=== PATIENT | female | born 1965 | race Caucasian/White ===

== ENCOUNTER → 2018-07-30 12:05 | Outpatient (CLI) | payer OTHER, MEDICAID, SELFPAY ==
--- NOTE | 2018-07-30 | DI.MG.S_ITS ---
BILATERAL DIGITAL SCREENING MAMMOGRAM 3D/2D WITH CAD: 07/30/2018 CLINICAL: Routine screening. Family history of breast cancer. Comparison is made to exams dated: 07/01/2016 mammogram - [facility], 11/07/2013 mammogram - [facility], and 06/26/2011 mammogram - [facility]. The tissue of both breasts is heterogeneously dense. This may lower the sensitivity of mammography. Current study was also evaluated with a Computer Aided Detection (CAD) system. No significant masses, calcifications, or other findings are seen in either breast. There has been no significant interval change. IMPRESSION: NEGATIVE There is no mammographic evidence of malignancy. A 1 year screening mammogram is recommended. This exam was interpreted at Station ID: [id number]. NOTE: For mammograms, a report in lay terms will be sent to the patient. Approximately 15% of breast malignancies will not be visualized mammographically. In the management of a palpable breast mass, a negative mammogram must not discourage biopsy of a clinically suspicious lesion. Electronically Signed By: Ifeoma rosado/[email or web address]:07/30/2018 14:21:07 letter sent: Normal Exam ACR BI-RADS Category 1: Negative [id number]
== END ==
PROVIDERS: PCP Family Medicine; Visit Provider Family Medicine
DX: Z12.31 Encounter for screening mammogram for malignant neoplasm of breast (principal); Z80.3 Family history of malignant neoplasm of breast
CPT/HCPCS: 77063; 77067

== ENCOUNTER 2018-10-26 12:13 | Day surgery (SDC) | payer OTHER, MEDICAID, SELFPAY ==
[2018-10-26] MEDS: SODIUM CHLORIDE 0.9% 1,000 ML 200 ML IV (13:22)
[2018-10-26 13:25] VITALS: BP 164/86; PULSE 79; RESP 16; TEMP 36.4; O2SAT 100
[2018-10-26] MEDS: fentaNYL 250 MCG/5 ML INJ IV (14:53)
[2018-10-26] MEDS: MIDAZOLAM 5 MG/5 ML VIAL IV (14:54)
--- NOTE | 2018-10-26 15:02 | PM.HP.1 ---
History of Present Illness Date Patient Seen: 10/26/18 Time Patient Seen: 15:02 Chief complaint: [id number] Narrative: Anika is a pleasant 53-year-old lady who presents for screening colonoscopy. She had a colonoscopy in 2013 and had 3 tubular polyps removed at that time. She denies any new problems or symptoms related to the function of her GI tract. She reports she needs a colonoscopy as part of the Health maintenance program. Patient History Surgical History History of bladder suspension procedure History of carpal tunnel repair Status post delivery Status post delivery Status post delivery Social History household members: children Family & Social History Social History: household members children Meds Home Medications Medication Instructions Recorded Confirmed Type esomeprazole magnesium [Nexium] 40 mg PO PRN #0 12/06/10 History ibuprofen 600 mg PO PRN #0 12/06/10 10/26/18 History MULTIVITAMIN (#MULTIPLE VITAMINS) 1 cap PO #0 12/10/10 History cetirizine 10 mg PO PRN #0 04/20/12 10/26/18 History levothyroxine 112 mcg PO DAILY 10/26/18 10/26/18 History linaclotide [Linzess] 145 mcg PO DAILY 10/26/18 10/26/18 History Allergies Allergy/AdvReac Type Severity Reaction Status Date / Time cefaclor [CEFACLOR] Allergy Unknown Unverified 11/18/17 13:00 minocycline [MINOCYCLINE] Allergy Unknown Unverified 11/18/17 13:00 nitrofurantoin Allergy Unknown Unverified 11/18/17 13:00 [NITROFURANTOIN] Sulfa (Sulfonamide Allergy Unknown Unverified 11/18/17 13:00 Antibiotics) [SULFA (SULFONAMIDE ANTIBIOTICS)] Review of Systems Review of Systems All systems reviewed & are unremarkable except as noted in HPI and below Exam Vital Signs (past 8 hours): - 10/26/18 13:25 Temperature 97.5 F L Pulse Rate 79 Respiratory Rate 16 Blood Pressure 164/86 H Pulse Oximetry 100 Oxygen Delivery Method Room Air Narrative Exam Narrative: Very pleasant, well-nourished, and well-developed lady in no distress HEENT: Normocephalic and atraumatic, pupils equal round reactive to light accommodation with anicteric sclera lungs: Clear to auscultation bilaterally Heart: Regular rate and rhythm without murmur rub or gallop abdomen: Soft, nontender, active bowel sounds extremities: Warm and well perfused and without edema Assessment & Plan Assessment & Plan narrative: very pleasant 53-year-old lady who is generally healthy. She has a personal history of colon polyps with 3 removed in 2013. We discussed the risks and benefits of colonoscopy the patient expressed a desire to complete the procedure today.
[2018-10-26 15:03] VITALS: BP 129/83; PULSE 87; RESP 16; TEMP 36.7; O2SAT 99
--- NOTE | 2018-10-26 15:04 | PM.OP.1 ---
Operative Date/Time/Diagnoses Date of procedure: 10/26/18 Time of procedure: 15:04 Pre-op diagnosis: Personal history of colon polyps Post-op diagnosis: same Procedure & Clinicians Procedure: colonoscopy to the cecum Same procedure as scheduled: Yes Indications: last colonoscopy 2013 Surgeon: Hoa Mares Click Yes if Unassisted: Yes Anesthesia Type: Sedation ( Versed 5 mg; fentanyl 100 mcg) Operative Notes Findings: 1. Adequate prep 2. No polyps or mass lesions 3. No AV malformations 4. diverticulosis limited to very small pockets in the sigmoid region only 5. Grade 1-2 internal hemorrhoids Closure Type: not applicable Specimen(s): none sent Procedure in detail: After obtaining informed consent, the patient was brought to the GI suite and placed in the left lateral decubitus position on the examination table. After placement of appropriate monitors, the patient was given incremental doses of Versed and Fentanyl until an appropriate level of sedation was achieved. A time out was held per SCOAP protocol. A digital rectal examination was performed and did not reveal any masses or obstructing lesions. The colonoscope was gently passed into the patient's anus and the entire colon navigated to the level of the cecum with minimal difficulty. Once in the cecum, the scope was withdrawn being sure to go before and beyond all mucosal folds and prominences and get an excellent examination. The findings are noted above. At the level of the rectal vault, the scope was retroflexed and the internal anal canal was examined. The scope was straightened and air aspirated from the colon. The instrument was removed from the patient's body and the procedure was concluded. The patient was allowed to awaken from sedation without difficulty and taken to the post-anesthesia care unit in good condition. total sedation time was 21 min total withdrawal time was 10 min 20 sec Complications: none Condition: stable Disposition: PACU Plan for aftercare: 1. Discharge to home 2. Plan for next colonoscopy in 5 years or as clinically indicated.
[2018-10-26 15:08] VITALS: BP 133/85; PULSE 85; RESP 18; O2SAT 99
[2018-10-26 15:13] VITALS: BP 134/84; PULSE 98; RESP 15; O2SAT 99
[2018-10-26 15:16] VITALS: BP 147/86; PULSE 86; RESP 15; TEMP 36.6; O2SAT 100
[2018-10-26 15:25] VITALS: BP 138/86; PULSE 84; RESP 15; TEMP 36.8; O2SAT 100
== END 2018-10-26 15:40 | disposition home or self-care (01) ==
PROVIDERS: PCP Family Medicine; Visit Provider Surgery
PROC: 0DJD8ZZ Inspection of Lower Intestinal Tract, Via Natural or Artificial Opening Endoscopic (ICD-10-PCS; CPT 45378; principal; 2018-10-26 14:00)
DX: Z86.010 Personal history of colon polyps (principal); K57.30 Diverticulosis of large intestine without perforation or abscess without bleeding; K64.1 Second degree hemorrhoids
CPT/HCPCS: 45378; 99152; J2250; J3010

== ENCOUNTER → 2018-11-25 11:12 | Outpatient (CLI) | payer OTHER, MEDICAID, SELFPAY ==
--- NOTE | 2018-11-25 11:30 | DI.RAD.S_ITS ---
PROCEDURE: XR CERVICAL SPINE 4V OR 5V INDICATIONS: Eval TECHNIQUE: 5 views of the cervical spine acquired. COMPARISON: None. FINDINGS: Bones: No fractures or dislocations to the C7 level. Mild uncovertebral joint hypertrophy from C4-C7. Mild disc space narrowing C5-6 and C6-7. Oblique images demonstrate mild bony foraminal narrowing secondary to uncovertebral joint hypertrophy on the right at C5-6, and on the left at C4-5.. Soft tissues: No prevertebral soft tissue swelling. IMPRESSION: Mild degenerative changes as described. Dictated by: Rachel Villarreal M.D. on 11/25/2018 at 12:25 Approved by: Rachel Villarreal M.D. on 11/25/2018 at 12:28
[2018-11-25 12:15] LABS: Add Manual Diff / Slide Review NO; Basophils Absolute Auto 100 /uL (0-100); Basophils Percent Auto 1.1 % (0-2); Eosinophils Absolute Auto 300 /uL (0-450); Eosinophils Percent Auto 5.1 % (2-4); Hematocrit 41.4 % (36-46); Lymphocytes Absolute Auto 2100 /uL (1100-4500); Mean Corpuscular HGB Conc 33.8 % (30-36); Mean Corpuscular Hemoglobin 29.4 PG (26-34); Mean Corpuscular Volume 86.9 fL (80-100); Monocytes Absolute Auto 400 /uL (0-900); Monocytes Percent Auto 5.9 % (3-14); Neutrophils Absolute Auto 3500 /uL (1500-7000); Neutrophils Percent Auto 54.9 % (50-75); Platelet Count 297 X10^3/uL (150-400); Red Blood Cell Count 4.76 X10^6/uL (4.0-5.2); Red Cell Distribution Width 12.6 % (11.6-14.8); White Blood Cell Count 6.3 X10^3/uL (4.5-11.0)
[2018-11-25 12:35] LABS: Erythrocyte Sedimentation Rate 9 MM/HR (0-20)
[2018-11-25 12:36] LABS: Alanine Aminotransferase 37 IU/L (9-52); Albumin 4.9 g/dL (3.5-5.0); Albumin Globulin Ratio 1.7 (1.0-2.8); Alkaline Phosphatase 85 U/L (38-126); Aspartate Aminotransferase 26 IU/L (14-36); BUN Creatinine Ratio 22.9 (6-22); Bilirubin Total 0.4 mg/dL (0.2-1.3); Blood Urea Nitrogen 16 mg/dL (7-17); C-Reactive Protein Quant < 0.5 mg/dL (<1.0); Calcium 10.2 mg/dL (8.4-10.2); Carbon Dioxide 26 mmol/L (22-32); Chloride 102 mmol/L (98-107); Estimated Glomerular Filt Rate > 60.0 mL/min (>60); Globulin 2.9 g/dL (1.7-4.1); Glucose 106 mg/dL (70-100); HEMOLYSIS < 15 (0-50); Potassium 4.7 mmol/L (3.4-5.1); Sodium 139 mmol/L (137-145); Total Protein 7.8 g/dL (6.3-8.2)
[2018-11-25 12:37] LABS: Rheumatoid Factor 9.8 IU/mL (<12.0)
[2018-11-25 12:56] LABS: TSH w/ Reflex to FT4 1.35 uIU/mL (0.47-4.68)
[2018-11-27 16:37] LABS: ANA Screen, IFA Negative (Negative)
== END ==
PROVIDERS: PCP Family Medicine; Visit Provider Physical Medicine & Rehabilitation
DX: M47.22 Other spondylosis with radiculopathy, cervical region (principal); M54.9 Dorsalgia, unspecified; G89.29 Other chronic pain; M25.50 Pain in unspecified joint
CPT/HCPCS: 36415; 72050; 80053; 84443; 85025; 85651; 86038; 86140; 86430

== ENCOUNTER 2020-04-25 07:59 | Emergency (ER) | payer OTHER, SELFPAY ==
--- NOTE | 2020-04-25 08:12 | ED.URI ---
HPI - URI/Sore Throat General Chief Complaint: Environmental Exposure Stated Complaint: bloody nose and burning lungs/chemicals today Time Seen by Provider: 04/25/20 08:12 History of Present Illness HPI Narrative: 54-year-old woman with a history of hypothyroidism and reflux was at work today went to clean out some jelly like chemical debris under a counter and after pulling out all of the bottles tubes in beginning the initial cleaning began having significant burning in her eyes and her throat and coughing. Coughing enough that she developed of mild nose bleed. In looking at the bottles and possible composition of the mess that she was cleaning up there was 1 that was the lye/descaler that she thinks was probably the culprit. I suspect that it was a combination of multiple bottles that had leaked causing the toxic milieu On arrival she is able to speak in full sentences but is coughing and continually clearing her throat. She has used a significant amount of saline flush for her eyes prior to arrival and her eyes are minimally bothersome at the time Related Data Home Medications Medication Instructions Recorded Confirmed esomeprazole magnesium [Nexium] 40 mg PO PRN #0 12/06/10 12/06/18 ibuprofen 600 mg PO PRN #0 12/06/10 12/06/18 MULTIVITAMIN (#MULTIPLE VITAMINS) 1 cap PO #0 12/10/10 12/06/18 cetirizine 10 mg PO PRN #0 04/20/12 12/06/18 levothyroxine 112 mcg PO DAILY 10/26/18 12/06/18 linaclotide [Linzess] 145 mcg PO DAILY 10/26/18 12/06/18 Previous Rx's Medication Instructions Recorded meloxicam 15 mg tablet 15 mg PO DAILY #30 tab 03/07/19 Allergies Allergy/AdvReac Type Severity Reaction Status Date / Time cefaclor [CEFACLOR] Allergy Unknown Verified 12/06/18 14:02 minocycline [MINOCYCLINE] Allergy Unknown Verified 12/06/18 14:02 nitrofurantoin Allergy Unknown Verified 12/06/18 14:02 [NITROFURANTOIN] Sulfa (Sulfonamide Allergy Unknown Verified 12/06/18 14:02 Antibiotics) [SULFA (SULFONAMIDE ANTIBIOTICS)] Review of Systems Review of Systems Narrative: Pertinent positive and negative findings as per HPI Remainder of review of systems is otherwise unremarkable for Constitutional: Fevers, chills, weakness ENT: , neck pain, ear pain CV: Chest pain, palpitations, dyspnea on exertion GI: Nausea, vomiting, diarrhea, change in bowel habits, black or bloody stools : Dysuria, hematuria, flank pain MS: Muscle weakness, numbness, joint swelling or warmth Skin: Rashes, nonhealing lesions Neuro: Syncope, dizziness, tingling Patient History Medical History (Updated 04/25/20 @ 09:20 by Guadalupe Vela MD) Diffuse arthralgia (Chronic) Hypothyroidism (acquired) (Acute) Surgical History (Updated 11/25/18 @ 10:57 by Christiano Malhotra DO) History of bladder suspension procedure History of carpal tunnel repair Status post delivery Status post delivery Status post delivery Social History household members: children Smoking Status: Never smoker Exam Narrative Exam Narrative: General: Healthy appearing, in mild distress. Able to give a complete and coherent history. Well-nourished well-developed HEENT: Moist mucous membranes, mildly injected sclera with reactive pupils, no intraoral rashes and no facial rashes. Minor epistaxis with coughing Neck: No JVD, supple Respiratory: Lungs are clear to auscultation, no wheezing no rales no rhonchi. Full and symmetrical air movement with significant recurrent dry cough Cardiac: Regular rate and rhythm no murmurs no bruits Abdomen: Soft nontender good bowel tones, no flank pain Skin: Warm and dry, no rashes Neurologic: Grossly neurologically intact with no obvious asymmetries or abnormalities Extremities: No trauma, well perfused Psych: Cooperative, appropriate insight and affect Initial Vital Signs Initial Vital Signs: Vital Signs Temperature 97.6 F 04/25/20 08:15 Pulse Rate 100 H 04/25/20 08:15 Respiratory Rate 18 04/25/20 08:15 Blood Pressure 171/99 H 04/25/20 08:15 Pulse Oximetry 100 04/25/20 08:15 Course Orders Ordered: Discontinued Medications Sodium Chloride (Normal Saline 0.9% (Rt/Inh)) 3 ml INH NOW ONE Stop: 04/25/20 08:26 Last Admin: 04/25/20 08:26 Dose: 3 ml Documented by: FIGUEROA Vital Signs Vital signs: Vital Signs - 8 hr 04/25/20 08:15 04/25/20 08:26 Temperature 97.6 F Pulse Rate 100 H 99 H Respiratory Rate 18 20 Blood Pressure 171/99 H Pulse Oximetry 100 98 [facility] - URI/Sore Throat Medical Records Attestation: I reviewed the patient's medical records. [facility] Narrative Medical decision making narrative: 54-year-old woman with toxic exposure to cleaning solvents at work. Was exposed for a number of minutes and is having cough, dry throat eyes have been rinsed in her no longer burning. She is not complaining of significant dyspnea or other chest pain aside from that related to the severity of the cough. In the emergency room she was given some nebulized saline which helped slightly and observed with no worsening of symptoms. At this point she is safe for home discharge and can return to work tomorrow. Discharge Plan Departure Patient Disposition: Home Clinical Impression: Exposure to toxic chemical Instructions: DI for Inhalation Injury Activity Restrictions/Additional Instructions: Thank you for coming in today You did the right thing by rinsing out your eyes right away. The chemicals have certainly irritated your upper airway causing the cough and a scratchy throat. There is no wheezing and no obvious trauma to the inside of your mouth or throat It is safe to go home. Given all of the smoke particular it in the air right now I would recommend staying inside for the rest of the day and resting. You can return to work tomorrow. I hope you feel better Prescriptions: No Action esomeprazole magnesium [Nexium] 40 MG capsule,delayed release(DR/EC) 40 mg PO PRN Qty: 0 RF: 0 ibuprofen 600 MG tablet 600 mg PO PRN Qty: 0 RF: 0 MULTIVITAMIN (#MULTIPLE VITAMINS) 1 cap PO Qty: 0 RF: 0 cetirizine 10 MG tablet 10 mg PO PRN Qty: 0 RF: 0 meloxicam 15 mg tablet 15 mg PO DAILY Qty: 30 RF: 2 Linzess 145 mcg Capsule 145 mcg PO DAILY RF: 0 levothyroxine 112 mcg Capsule 112 mcg PO DAILY RF: 0 Referrals: Morro Chopra MD [Primary Care Provider] - Stand Alone Forms: Work Release Note
[2020-04-25 08:15] VITALS: BP 171/99; PULSE 100; RESP 18; TEMP 36.4; O2SAT 100
[2020-04-25 08:26] VITALS: PULSE 99; RESP 20; O2SAT 98
[2020-04-25] MEDS: SODIUM CHLORIDE 0.9% (RT/INH) 3 ML NEB INH (08:26)
--- NOTE | 2020-04-25 08:49 | PC.NURSE ---
pt clearing her throat frequently.
--- NOTE | 2020-04-25 09:12 | PC.NURSE ---
pt reports that saline hfn didn't work much.
[2020-04-25 09:36] VITALS: BP 155/86; PULSE 84; RESP 18; O2SAT 99
== END 2020-04-25 09:38 | disposition home or self-care (01) ==
PROVIDERS: Emergency Provider Emergency Medicine; PCP Family Medicine
DX: Z77.098 Contact with and (suspected) exposure to other hazardous, chiefly nonmedicinal, chemicals (principal); Y99.0 Civilian activity done for income or pay
CPT/HCPCS: 94640; 99283

== ENCOUNTER → 2021-07-25 13:19 | Outpatient (CLI) | payer OTHER, SELFPAY ==
--- NOTE | 2021-07-25 | DI.US.S_ITS ---
LIMITED ULTRASOUND OF RIGHT BREAST: 07/25/2021 CLINICAL: Palpable right breast lump. Comparison is made to exams dated: 07/25/2021 mammogram, 07/30/2018 mammogram, 07/01/2016 ultrasound, 07/01/2016 mammogram - [facility], 11/07/2013 mammogram - [facility], and 11/07/2013 [facility]. Color flow and real-time ultrasound of the right breast 10 o'clock region were performed. Torres scale images of the real-time examination were reviewed. No significant abnormalities were seen sonographically in the right breast. The lipoma seen on mammogram is not well defined by ultrasound. IMPRESSION: NEGATIVE The lipoma seen on mammography is not well seen by ultrasound. There is no sonographic evidence of malignancy. Return to annual mammogram screening schedule is recommended. If the lump remains symptomatic, surgical consult could be obtained for excision. Findings and recommendations were conveyed to the patient at time of exam. This exam was interpreted at Station ID: [id number]. Electronically Signed By: Rachel jacobs/:07/25/2021 15:33:10 letter sent: Normal Exam Ultrasound BI-RADS: 1 Negative
--- NOTE | 2021-07-25 | DI.MG.S_ITS ---
BILATERAL DIGITAL DIAGNOSTIC MAMMOGRAM 3D/2D: 07/25/2021 CLINICAL: Right breast lump. Comparison is made to exams dated: 07/30/2018 mammogram, 07/01/2016 mammogram - [facility], and 11/07/2013 mammogram - [facility]. The tissue of both breasts is heterogeneously dense. This may lower the sensitivity of mammography. There is a 2.9 cm oval fat containing lipoma with a circumscribed margin in the right breast at 10 o'clock middle depth. This is best seen on the lateral catie view and is not seen with spot compression. This has increased in size. No other significant masses, calcifications, or other findings are seen in either breast. No other new mammographic findings in the area of palpable abnormality. Mammograms are otherwise stable. IMPRESSION: INCOMPLETE: NEEDS ADDITIONAL IMAGING EVALUATION The 2.9 cm oval fat containing lipoma in the right breast corresponds to the palpable abnormality, is not well seen with spot compression views, and remains indeterminate. No other new mammographic findings in the area of palpable abnormality. Ultrasound is recommended for full evaluation of this area. This was performed immediately following this exam. This exam was interpreted at Station ID: [id number]. NOTE: For mammograms, a report in lay terms will be sent to the patient. Approximately 15% of breast malignancies will not be visualized mammographically. In the management of a palpable breast mass, a negative mammogram must not discourage biopsy of a clinically suspicious lesion. Electronically Signed By: Rachel jacobs/:07/25/2021 14:10:16 ACR BI-RADS Category 0: Incomplete [id number]
== END ==
PROVIDERS: PCP Family Medicine; Referring Provider Family Medicine; Visit Provider Family Medicine
DX: N63.11 Unspecified lump in the right breast, upper outer quadrant (principal); R92.8 Other abnormal and inconclusive findings on diagnostic imaging of breast; D17.39 Benign lipomatous neoplasm of skin and subcutaneous tissue of other sites
CPT/HCPCS: 76642; 77066; G0279

== ENCOUNTER → 2021-09-11 12:51 | Outpatient (CLI) | payer OTHER, SELFPAY ==
--- NOTE | 2021-09-11 13:00 | DI.RAD.S_ITS ---
PROCEDURE: XR CERVICAL SPINE 4V OR 5V INDICATIONS: NECK PAIN/ SHOULDER PAIN TECHNIQUE: 5 views of the cervical spine acquired. COMPARISON: [facility], CR, XR CERVICAL SPINE 4V OR 5V, 11/25/2018, 11:33. FINDINGS: Bones: No fractures or dislocations to the C7-T1 level. Degenerative endplate changes and bilateral facet hypertrophic changes are noted throughout cervical spine more prominent at C5-6 and C6-7 levels. Oblique images demonstrate left-sided bony foraminal stenosis at C5-6 level. Soft tissues: No prevertebral soft tissue swelling. IMPRESSION: Degenerative disc disease throughout cervical spine with left-sided bony foraminal stenosis at C5-6 level on oblique view. No acute fracture or dislocation. Dictated by: Nitin Kramer M.D. on 09/11/2021 at 14:28 Approved by: Nitin Kramer M.D. on 09/11/2021 at 14:28
--- NOTE | 2021-09-11 13:00 | DI.RAD.S_ITS ---
PROCEDURE: XR SHOULDER LT MIN 2V INDICATIONS: LEFT SHOULDER PAIN TECHNIQUE: 3 views of the shoulder were acquired. COMPARISON: [facility], CR, XR SHOULDER RT MIN 2V, 09/11/2021, 12:52. FINDINGS: Bones: No fractures or dislocations. No suspicious bony lesions. Visualized ribs appear intact. Mild degenerative change at the AC joint. Soft tissues: No suspicious soft tissue calcifications. IMPRESSION: Mild degenerative change at the AC joint appreciated. Consider further evaluation of the rotator cuff with MRI if clinically indicated. Dictated by: Juan De Souza M.D. on 09/11/2021 at 15:06 Approved by: Juan De Souza M.D. on 09/11/2021 at 15:08
--- NOTE | 2021-09-11 13:00 | DI.RAD.S_ITS ---
PROCEDURE: XR SHOULDER RT MIN 2V INDICATIONS: RIGHT SHOULDER PAIN TECHNIQUE: 3 views of the shoulder were acquired. COMPARISON: None. FINDINGS: Bones: No fractures or dislocations. No suspicious bony lesions. Visualized ribs appear intact. Joint space narrowing and periarticular osteophyte formation at the acromioclavicular and glenohumeral joints. Soft tissues: No suspicious soft tissue calcifications. IMPRESSION: Osteoarthritis. No acute fracture. No osseous lesion. If symptoms and/or clinical suspicion for pathology persist, further assessment with repeat, or advanced imaging (e.g., CT, MRI, or bone scan) may be helpful for further assessment. Dictated by: Kirstie Turner M.D. on 09/11/2021 at 14:45 Approved by: Kirstie Turner M.D. on 09/11/2021 at 14:45
== END ==
PROVIDERS: PCP Family Medicine; Referring Provider Physical Medicine & Rehabilitation; Visit Provider Physical Medicine & Rehabilitation
DX: M47.22 Other spondylosis with radiculopathy, cervical region (principal); M50.122 Cervical disc disorder at C5-C6 level with radiculopathy; M48.02 Spinal stenosis, cervical region; M19.011 Primary osteoarthritis, right shoulder; M25.511 Pain in right shoulder; M25.512 Pain in left shoulder; G89.29 Other chronic pain
CPT/HCPCS: 72050; 73030

== ENCOUNTER → 2024-05-31 19:05 | Outpatient (CLI) | payer OTHER, SELFPAY ==
--- NOTE | 2024-05-31 | DI.MRI.S_ITS ---
PROCEDURE: MR KNEE LT WO CON INDICATIONS: tear of medial meincus of knee TECHNIQUE: Noncontrast sagittal PD fast spin echo and T2 fast spin echo with fat saturation, sagittal 3-D FLASH with fat saturation; coronal T1 spin echo and PD fast spin echo with fat saturation, and axial PD fast spin echo with fat saturation through the knee. COMPARISON: None. FINDINGS: Image quality: Excellent. Bones: Mild marrow edema is present at the posterior medial tibial plateau (05/31). Subchondral cyst formation is present at the tibial eminence (05/28). The bone marrow signal is otherwise normal. There is no acute fracture or dislocation. Joints: There is a trace knee joint effusion. There is mild knee osteoarthritis. Marie's cyst: Small Marie's cyst. Menisci: There is a complex tear of the body and posterior horn of the medial meniscus with primary horizontal and vertical components (05/25-). The lateral meniscus is normal. The posterior root attachments are normal. Cruciate ligaments: The anterior cruciate ligament is normal. The posterior cruciate ligament is normal. Collateral ligaments: The medial collateral ligament complex is normal. The lateral collateral ligament complex is normal. Popliteus Muscle/Tendon: The popliteus muscle and tendon are normal. Extensor mechanism: The quadriceps tendon is normal. The patellar tendon is normal. The medial and lateral patellar retinacular attachments are normal. Articular cartilage: Deep, partial-thickness chondral fissuring is present at the posterior lateral femoral condyle (05/31). Partial-thickness chondral loss is present at the lateral patellofemoral compartment (12/19 Other: No other acute findings. IMPRESSION: 1. Complex tear of the medial meniscal body and posterior horn, with associated mild reactive edema at the posterior-medial tibial plateau. 2. Mild knee osteoarthritis with associated articular cartilage defects. Dictated by: Vinny Winter M.D. on 06/01/2024 at 10:05 Approved by: Vinny Winter M.D. on 06/01/2024 at 11:00
== END ==
LOC: MRI 19:09
PROVIDERS: PCP Family Medicine; Referring Provider Orthopaedic Surgery; Visit Provider Orthopaedic Surgery
DX: S83.232A Complex tear of medial meniscus, current injury, left knee, initial encounter (principal); M17.12 Unilateral primary osteoarthritis, left knee
CPT/HCPCS: 73721